=== PATIENT | male | born 1945 | race Caucasian/White ===

== ENCOUNTER 2016-09-30 03:10 | Inpatient (IN) ==
--- NOTE | 2016-09-24 14:21 | EKG Report ---
Test Performed on : 09/24/2016 2:19:17 PM Test Reason : pat Blood Pressure : / mmHG Vent. Rate : 061 BPM Atrial Rate : 061 BPM P-R Int : 200 ms QRS Dur : 102 ms QT Int : 414 ms P-R-T Axes : 069 -05 039 degrees QTc Int : 416 ms Normal sinus rhythm. Normal ECG When compared with ECG of 13-AUG-2016 10:55, No significant change was found Confirmed by Pola Monroy MD ([id number]) on 09/26/2016 12:04:39 PM
[2016-09-24 14:37] LABS: HEMATOCRIT 40.1 % (42.0-52.0); HEMOGLOBIN 13.3 g/dL (14.0-18.0); MCH 31.1 PG (27-31); MCHC 33.2 g/dL (33-37); MCV 93.9 FL (81-99); MPV 10.9 FL (7.4-10.4); RBC 4.27 XMIL (4.7-6.1)
[2016-09-24 14:59] LABS: AGAP 15; BUN 17 mg/dL (8-22); CHLORIDE 98 mmol/L (98-107); COSMO 284; POTASSIUM 4.1 mmol/L (3.5-5.1); SODIUM 140 mmol/L (136-145); TCO2 27 mmol/L (25-35)
[2016-09-30] MEDS ORDERED: KEFZOL 2 GM/D5W 2 GM/50 ML IVPB ONE (05:35)
[2016-09-30] MEDS ORDERED: LR 1,000 ML ONE ×2 (05:35→06:11)
[2016-09-30] MEDS ORDERED: MARCAINE 0.25% PF/EPI 1:200,000 ONE (06:11)
[2016-09-30] MEDS ORDERED: B & O 16A SUPP ONE (06:12)
[2016-09-30 08:18] LABS: URINE MICRO REVIEW NEEDED? NO; URINE SOURCE CATH
[2016-09-30 08:20] LABS: BILIRUBIN URINE NEGATIVE (NEGATIVE); BLOOD URINE NEGATIVE (NEGATIVE); COLOR STRAW; GLUCOSE URINE NEGATIVE (NEGATIVE); LEUKOCYTES URINE NEGATIVE (NEGATIVE); NITRITE URINE NEGATIVE (NEGATIVE); PH URINE 5.5; PROTEIN URINE NEGATIVE (NEGATIVE); SP GRAVITY URINE 1.011; TURBIDITY URINE CLEAR (CLEAR); UROBILINOGEN URINE NORMAL (NORMAL)
[2016-09-30 08:21] LABS: UR EPITHELIAL CELLS <10 /HPF (<10); URINE BACTERIA NEGATIVE /HPF; URINE RBC <10 /HPF (<10); URINE WBC <10 /HPF (<10)
[2016-09-30] MEDS ORDERED: AK-FLUOR ONE (10:10)
[2016-09-30] MEDS ORDERED: NS 1,000 ML ONE (11:39)
[2016-09-30] MEDS ORDERED: DIPRIVAN 1% ONE (12:28)
[2016-09-30] MEDS ORDERED: FENTANYL ONE (12:28)
[2016-09-30] MEDS ORDERED: PHENERGAN IV PRN (12:56)
[2016-09-30] MEDS ORDERED: SODIUM CHLORIDE 0.9% INJ PRN (12:56)
[2016-09-30] MEDS ORDERED: LABETALOL IV PRN (12:56)
[2016-09-30] MEDS ORDERED: BENADRYL LIQUID PO PRN (12:56)
[2016-09-30] MEDS ORDERED: PHENERGAN PR PRN (12:56)
[2016-09-30] MEDS ORDERED: PHENERGAN PO PRN (12:56)
[2016-09-30] MEDS ORDERED: DITROPAN PO PRN (12:56)
[2016-09-30] MEDS ORDERED: BENADRYL IV PRN (12:56)
[2016-09-30] MEDS ORDERED: MORPHINE IV PRN (12:56)
[2016-09-30] MEDS ORDERED: SODIUM CHLORIDE 0.9% 10 ML ONE (13:05)
[2016-09-30] MEDS ORDERED: XYLOCAINE-MPF 2% ONE (13:05)
[2016-09-30] MEDS ORDERED: NEOSTIGMINE ONE (13:05)
[2016-09-30] MEDS ORDERED: NORCURON ONE (13:05)
[2016-09-30] MEDS ORDERED: ZOFRAN ONE (13:05)
[2016-09-30] MEDS ORDERED: ROBINUL ONE (13:05)
[2016-09-30] MEDS ORDERED: OFIRMEV 1000 MG/ISOTONIC SOLN 1,000 MG/100 ML BOTTLE ONE (13:06)
[2016-09-30] MEDS ORDERED: ZEMURON ONE (13:06)
[2016-09-30] MEDS ORDERED: QUELICIN (DOSE) ONE (13:06)
[2016-09-30] MEDS ORDERED: DECADRON ONE (13:06)
[2016-09-30] MEDS ORDERED: LR 2,000 ML ONE (13:07)
[2016-09-30] MEDS: KEFZOL 1 GM/D5W 1 GM/50 ML IVPB IV SCH ×2 (14:33→21:09)
[2016-09-30] MEDS: NS 1,000 ML IV SCH (14:33)
--- NOTE | 2016-09-30 15:31 | OPERATIVE NOTE ---
PROCEDURE DATE: 09/30/2016 SURGEON: Hao Cisneros MD PREOPERATIVE DIAGNOSIS: Adenocarcinoma of the prostate. POSTOPERATIVE DIAGNOSIS: Adenocarcinoma of the prostate. PROCEDURE PERFORMED: Laparoscopic robot-assisted radical retropubic prostatectomy, bilateral pelvic lymph node dissection, and urethral suspension. ANESTHESIA: General endotracheal. FINDINGS: Normal appearing prostate with attached seminal vesicles and vas deferens. The pelvic lymph nodes did not appear enlarged. There was a suspicious area at the left bladder neck, some tissue was taken for frozen section. The frozen section returned as suspicious for prostate glands, a wider resection from the bladder neck was then taken. INDICATION FOR PROCEDURE: This 71-year-old male has a history of elevated PSA. Transrectal prostate ultrasound and biopsies revealed multiple cores of Hesperus 3 + 3 with 1 core of 3 + 4 from the left side of the prostate. The right side was completely clear. DESCRIPTION OF PROCEDURE: After informed consent was obtained from the patient, and him receiving IV antibiotics, he was taken to the main OR, and placed in the supine position. General endotracheal anesthesia was achieved. He was then placed in a low lithotomy position and prepped and draped in the usual sterile fashion for abdominal, penile, and perineal surgery. An 18-Malagasy Her catheter was passed through the patient's urethra, prostate, and into the bladder without difficulty, 10 mL sterile water placed in the Her's balloon. The Her was placed to gravity drain. A longitudinal skin incision was made just above the umbilicus for a distance of about 3 cm. A Veress needle was used to achieve pneumoperitoneum after the water drop test was normal. After pneumoperitoneum was achieved, he developed bradycardia and the pneumoperitoneum was dropped to 12 cm of water and his heart rate returned to his normal. The robot trocars were placed in the standard position with the #3 arm just above the right anterior superior iliac spine. The certified ophthalmic assistant port was placed in the left epigastric area just off the midline. The patient was then placed in steep Trendelenburg and the table lowered all the way the robot was docked. The procedure was started by taking down multiple physiologic adhesions from the left descending colon and sigmoid colon. After the colon was freed up the fourth arm was used to retract the sigmoid colon such that the reflection from the rectum of the peritoneum on to the anterior abdominal wall was easily seen. This was incised approximately 1-2 cm above the reflection. The seminal vesicles and vas deferens were visualized and dissected free. The pedicles to the seminal vesicle was taken down with clips. The both sides were accomplished similarly. The vas deferens was incised. The artery to the vas deferens was cauterized. The seminal vesicle was dissected free all the way back to the base of the prostate. Again both sides were accomplished similarly. The bladder was dropped off the anterior bladder wall by incising the peritoneum just medial to the internal inguinal ring on the right side this was extended up onto the anterior abdominal wall and back down to the vas deferens inferiorly. Again both sides were accomplished similarly. The bladder was dropped off of the anterior abdominal wall without difficulty. The endopelvic fascia on either side of the prostate was cleared of all fibrofatty tissue. The superficial dorsal vein had to be cauterized with the electrocautery. The endopelvic fascia was entered lateral to the prostate on the right side. This small incision was extended back to the base of the prostate and up to the puboprostatic ligaments. The puboprostatic ligaments were taken down sharply. Both sides were accomplished similarly. The dorsal vein complex was ligated using a 2-0 V-Loc suture. The suture was then initially passed under the dorsal vein complex twice to allow the V-Loc sutures to community reinvestment act officer. The suture was then passed through the periosteum of the pubis, and then back under the dorsal vein complex, then back through the periosteum of the pubis. The bladder was dissected off of the base of the prostate by incising the bladder at its mid position and using the electrocautery to dissect the bladder completely free. The urethra was visualized and entered. The Her catheter was brought through the cystotomy and used as a traction device. The posterior bladder was sharply dissected off the remaining portion of the base of the prostate using the electrocautery. On the left side, it appeared ruiz than the right side and there was gland like material that really did not look like prostate tissue, but was sent for frozen section. The frozen section returned as possible prostate glands. A wider resection was then obtained and this tissue was sent in its own container. After the previously dissected space exposing the seminal vesicles and vas deferens was entered, these were brought up through this incision and the bladder was completely freed from the base of the prostate. The prostate pedicles were taken down with clips. The prostate was dissected all the way down to the apex of the prostate and was freed from the rectum with blunt and sharp dissection without difficulty. The dorsal vein complex at the apex of the prostate was cauterized and incised and the urethra was exposed. The urethra was incised just distal to the prostatic apex. Her catheter was visualized and pulled back. The posterior urethra was incised. The remaining fibers of the rectourethralis muscle was excised. The specimen was freed and moved to the side. The modified lymph node dissection was performed first on the left side. The external iliac vein was exposed and all fibro lymphatic tissue on the medial side of the vein going down over the pubic bone down to the obturator nerve was dissected free. The node tissue and fibrofatty tissue was dissected back along the obturator nerve to the bifurcation of the external iliac and internal iliac veins. The proximal portion was clipped and sent to Pathology in its own container. The right side was accomplished similarly. Surgicel Snow was packed in each obturator fossa. The bladder was anastomosed to the urethra by first bringing the vesicovisceral fascia down to the posterior rhabdosphincter with a running suture of 3-0 V-Loc. The ends of the suture with the needles was left in place. The bladder was then anastomosed to the urethra with a running suture of 3-0 V-Loc without difficulty. The Her catheter easily passed in the bladder and was distended to 120 mL, no leakage was seen. After this anastomosis was done, the previously placed suture that anastomosed the vesicovisceral fascia to the posterior rhabdosphincter was used to suspend the urethra by placing the sutures through the periosteum of the pubis. Tension was placed on the sutures and the urethra was suspended. At completion, pneumoperitoneum was dropped to 3 cm of water and no bleeding areas were seen. The remaining portion of the Surgicel Snow was placed all around the urethra and dorsal vein complex. The robot was undocked. The EndoCatch bag retrieval string was brought out through the camera port. The pneumoperitoneum was resolved. The table was returned to the supine position. The robot trocars again were removed under direct vision. The camera port incision was extended to a distance of about 4 cm such that the specimen could be removed in the EndoCatch retrieval bag. The specimens were sent to Pathology. The prostate with attached seminal vesicles, vas deferens in 1 container. The right obturator nodes in 1 container. The left obturator nodes in 1 container and the expanded excision of the left bladder neck in its own container. The abdominal rectus fascia was reapproximated with interrupted sutures of #1 Maxon. The camera port fascia was reapproximated with a [id number] suture of 2-0 Vicryl using a UR6 needle. The skin incisions were reapproximated with skin clips. The camera port incision had subcutaneous sutures of 2-0 Vicryl placed and then the skin clips. The wounds were dressed with island dressings. He tolerated the procedure well. ESTIMATED BLOOD LOSS: 20 mL. DISPOSITION: He was extubated and taken to the recovery room in good condition. cc: Hao Cisneros MD
[2016-09-30] MEDS: JANUVIA PO SCH (16:51)
[2016-09-30] MEDS: GLUCOPHAGE PO SCH (16:51)
[2016-09-30] MEDS: OFIRMEV 1000 MG/ISOTONIC SOLN 1,000 MG/100 ML BOTTLE IV SCH ×2 (16:53→21:09)
[2016-09-30] MEDS: PERIDEX MT SCH (21:06)
[2016-09-30] MEDS: COLACE PO SCH (21:08)
[2016-09-30] MEDS: PEPCID PO SCH (21:08)
[2016-09-30] MEDS: OXY IR PO PRN (22:35)
[2016-10-01] MEDS: OXY IR PO PRN (04:40)
[2016-10-01] MEDS: OFIRMEV 1000 MG/ISOTONIC SOLN 1,000 MG/100 ML BOTTLE IV SCH (04:40)
[2016-10-01 05:39] LABS: HEMATOCRIT 37.1 % (42.0-52.0); HEMOGLOBIN 12.2 g/dL (14.0-18.0); MCH 31.4 PG (27-31); MCHC 32.9 g/dL (33-37); MCV 95.6 FL (81-99); MPV 11.4 FL (7.4-10.4); RBC 3.88 XMIL (4.7-6.1)
[2016-10-01 05:49] LABS: AGAP 12; BUN 17 mg/dL (8-22); CALCIUM 8.7 mg/dL (8.8-10.2); CHLORIDE 98 mmol/L (98-107); COSMO 277; POTASSIUM 4.6 mmol/L (3.5-5.1); SODIUM 135 mmol/L (136-145); TCO2 25 mmol/L (25-35)
[2016-10-01] MEDS: NS 1,000 ML IV SCH (08:21)
[2016-10-01 08:29] VITALS: BP 146/65
[2016-10-01] MEDS: JANUVIA PO SCH (08:31)
[2016-10-01] MEDS: GLUCOPHAGE PO SCH (08:31)
[2016-10-01] MEDS: COLACE PO SCH (08:31)
[2016-10-01] MEDS: PERIDEX MT SCH (08:31)
[2016-10-01] MEDS: PEPCID PO SCH (08:31)
[2016-10-01] MEDS ORDERED: PRINIVIL PO SCH (09:00)
[2016-10-01] MEDS ORDERED: ZIAC 10/6.25 MG PO SCH (09:00)
[2016-10-01] MEDS ORDERED: ZOCOR PO SCH (09:00)
== END 2016-10-01 09:41 | disposition home or self-care (01) ==
LOC: SURHOLD 03:10 → EDSTATUS 07:00 → 4N 11:41
PROVIDERS: ADMIT Urology; ATTEND Urology